=== PATIENT | female | born 1990 | race Two or more races ===

== ENCOUNTER 2021-02-27 13:12 | Inpatient (IN) | payer OTHER ==
[~2021-02-27] VITALS: Ht 157.5 cm; Wt 65.8 kg
== END 2021-03-03 12:51 | disposition home or self-care (01) | DRG 833 ==
LOC: OB/GYN 13:12
PROVIDERS: ATTEND Obstetrics & Gynecology
PROC: BT4JZZZ Ultrasonography of Kidneys and Bladder (ICD-10-PCS; principal; 2021-02-27)
PROC: BY4CZZZ Ultrasonography of Second Trimester, Single Fetus (ICD-10-PCS; 2021-02-27)
DX: O23.02 Infections of kidney in pregnancy, second trimester (principal); Z3A.16 16 weeks gestation of pregnancy; Z20.822 Contact with and (suspected) exposure to COVID-19

== ENCOUNTER 2021-08-07 19:05 | Inpatient (IN) | payer OTHER ==
[~2021-08-07] VITALS: Ht 157.5 cm; Wt 3.2 kg
[2021-08-07] MEDS ORDERED: PROTONIX40 MG PO (19:27)
[2021-08-07] MEDS ORDERED: PRENATAL TABLE1 EAC1 PO (19:29)
[2021-08-07] MEDS ORDERED: RENAL-VITE TAB0.8 MG PO (19:30)
== END 2021-08-11 18:59 | disposition home or self-care (01) | DRG 788 ==
LOC: OB/GYN 19:05 → LDR 19:05 → O/R 08-09 09:02 → OB/GYN 08-09 09:58
PROVIDERS: ADMIT Obstetrics & Gynecology; ATTEND Obstetrics & Gynecology
PROC: 3E0P7VZ Introduction of Hormone into Female Reproductive, Via Natural or Artificial Opening (ICD-10-PCS; 2021-08-07)
PROC: 4A1HXFZ Monitoring of Products of Conception, Cardiac Rhythm, External Approach (ICD-10-PCS; 2021-08-07)
PROC: 10D00Z1 Extraction of Products of Conception, Low, Open Approach (ICD-10-PCS; principal; 2021-08-08 23:00)
DX: O62.1 Secondary uterine inertia (principal); O61.0 Failed medical induction of labor; Z37.0 Single live birth; Z3A.39 39 weeks gestation of pregnancy

== ENCOUNTER 2024-03-08 07:00 | Inpatient (IN) | payer OTHER ==
[~2024-03-08] VITALS: Ht 157.5 cm; Wt 64.9 kg
[~2024-03-08 07:00] MED LIST: PRENATAL TABLE1 EAC1 PO; PROTONIX40 MG PO; RENAL-VITE TAB0.8 MG PO
[2024-03-08 08:00] LABS: HEMATOCRIT 36.7 % (36.0-45.00); HEMOGLOBIN 12.3 g/dL (12.0-15.00); MEAN CELL VOLUME 87.5 fL (80.00-100.00); MEAN CORPUSCULAR HEMOGLOBIN 29.3 pg (27.00-32.0); MEAN CORPUSCULAR HGB CONC 33.5 g/dl (32.0-36.0); PLATELET COUNT 312 K/uL (150-450); RED CELL DISTRIBUTION WIDTH 13.1 % (11.5-14.5)
[2024-03-08 08:02] LABS: PH,URINE 7.5 (5.0-8.0); URINE APPEARANCE Cloudy; URINE BILIRRUBIN Negative (NEGATIVE); URINE COLOR Yellow; URINE GLUCOSE Negative (NEGATIVE); URINE LEUKOCYTE Negative; URINE NITRATE Negative; URINE PROTEIN Negative (NEGATIVE); URINE UROBILINOGEN 0.2 E.U./dl
[2024-03-08] MEDS ORDERED: OMEPRAZOLE MAGN20 MG (08:02)
[2024-03-08] MEDS ORDERED: CLONOPIN (08:03)
[2024-03-08 08:04] LABS: URINE EPITHELIAL CELLS 4.7 uL (0.0-38.8); URINE RBC 93.8 uL (0.0-20.8); URINE WBC 3.3 uL (0.0-23.2)
[2024-03-08] MEDS ORDERED: WELLBUTRIN XL150 M1 (08:04)
[2024-03-08 08:07] LABS: URINE BLOOD TRACE
[2024-03-08 08:34] LABS: INR < 0.93; PARTIAL THROMBOPLASTIN TIME 27.4 SECONDS (22.0-34.0); PROTHROMBIN TIME 9.6 SECONDS (9.0-11.5)
[2024-03-08 09:03] LABS: ALBUMIN 3.6 gm/dL (3.4-5.0); BILIRUBIN TOTAL 0.29 mg/dL (0.3-1.2); CREATININE SERUM 0.54 mg/dL (0.55-1.02); GFR 130.02; GLOBULINA 3.1 G/DL (2.4-3.5); POTASSIUM 4.25 mEq/L (3.5-5.1); TOTAL PROTEIN 6.7 gm/dL (6.4-8.2)
[2024-03-10] MEDS ORDERED: CLINDAMYCIN PHOSPHATE 150 MG/ML (900mg) IV SCH (05:00)
[2024-03-10] MEDS ORDERED: OMEPRAZOLE20 MG (13:25)
[2024-03-10] MEDS ORDERED: CLONAZEPAM0.5 MG (13:25)
[2024-03-10] MEDS ORDERED: BUPROPION XL150 MG (13:26)
[2024-03-10] MEDS ORDERED: POVIDONE-IODINE 118 ML BOTT TOP SCH (13:45)
[2024-03-10] MEDS ORDERED: KETOROLAC TROMETHAMINE 60 MG VIAL IM STA (15:57)
[2024-03-10] MEDS ORDERED: MEPERIDINE HCL/PF 50 MG/ML VIAL IM PRN (16:00)
[2024-03-10] MEDS ORDERED: PROMETHAZINE HCL 25 MG/ML AMPUL IM PRN (16:00)
[2024-03-10] MEDS ORDERED: RINGERS SOLUTION,LACTATED 1,000 ML IV SCH (16:00)
[2024-03-10 18:51] LABS: HEMATOCRIT 34.2 % (36.0-45.00); HEMOGLOBIN 11.5 g/dL (12.0-15.00); MEAN CELL VOLUME 89.2 fL (80.00-100.00); MEAN CORPUSCULAR HGB CONC 33.6 g/dl (32.0-36.0); PLATELET COUNT 281 K/uL (150-450); RED BLOOD COUNT 3.84 M/uL (4.00-6.00); RED CELL DISTRIBUTION WIDTH 12.7 % (11.5-14.5)
[2024-03-11] MEDS ORDERED: OxyCODONE HCL/APAP UD (PERCOCET) PO PRN
[2024-03-13] MEDS ORDERED: IBUprofen 600 MG TABLET PO PRN (11:00)
== END 2024-03-14 14:42 | disposition home or self-care (01) | DRG 743 ==
LOC: SURH 03-10 07:00 → O/R 03-10 07:00 → OB/GYN 03-10 16:47
PROVIDERS: Obstetrics & Gynecology; ADMIT Obstetrics & Gynecology; ATTEND Obstetrics & Gynecology
PROC: 0UT70ZZ Resection of Bilateral Fallopian Tubes, Open Approach (ICD-10-PCS; 2024-03-10)
PROC: 0UB10ZZ Excision of Left Ovary, Open Approach (ICD-10-PCS; 2024-03-10)
PROC: 0UT90ZZ Resection of Uterus, Open Approach (ICD-10-PCS; principal; 2024-03-10 07:00)
DX: N85.01 Benign endometrial hyperplasia (principal); N72 Inflammatory disease of cervix uteri; N83.12 Corpus luteum cyst of left ovary; Z20.822 Contact with and (suspected) exposure to COVID-19